=== PATIENT | male | born 1965 | race Caucasian/White ===

== ENCOUNTER 2018-07-19 07:19 | Inpatient (IN) | payer MEDICAID ==
[~2018-07-19] VITALS: Ht 170.2 cm; Wt 60.9 kg
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
--- NOTE | ~2018-07-19 | MORECARE ---
CASE MANAGEMENT DISCHARGE SUMMARY PATIENT: AMANDA MURO UNIT: [id number] ADM DATE: 07/19/18 AGE: 52 : 65 SEX: M ROOM/BED: D.1207 AUTHOR: [place] PHYSICIAN: REFERRING PHYSICIAN: ROMELIA RATLIFF MD DATE OF SERVICE: 07/24/18 Discharge Plan Patient Name: AMANDA MURO [facility] [facility] 1965 Planned Disposition: Home or Self Care Anticipated Discharge Date: Discharge Date: Expected LOS: Initial Reviewer: [email or web address] Initial Review Date: 07/24/2018 Generated: 07/24/18 6:31 pm DCPIA - Discharge Planning Initial Assessment Updated by [email or web address]: Marlene Montoya on 07/24/18 5:27 pm * Is the patient Alert and Oriented? Yes * How many steps to enter\exit or inside your home? unk * PCP no pcp * Pharmacy no pharmacy * Preadmission Environment Homeless * Other Environment [place] [address] * ADLs Independent * Equipment None * List name and contact numbers for known caregivers / representatives who currently or will assist patient after discharge: no contacts * Verbal permission to speak to the caregivers and representatives has been obtained from the patient. Yes * Community resources currently utilized None * Additional services required to return to the preadmission environment? No * Can the patient safely return to the preadmission environment? Yes * Has this patient been hospitalized within the prior 30 days at any hospital? No Patient Name: AMANDA MURO Page [id number] at 1731 All edits/amendments must be made on the electronic document DICTATION DATE: 07/24/181730 GIS SOFTWARE ENGINEER: LIMA 07/24/181730 RPT#: [id number] DC DATE: STATUS: ADM IN [facility] [address] [place] [address] END OF REPORT
[2018-07-19 08:22] LABS: BASOPHILS 0.3 % (0-2); HEMATOCRIT 41.4 % (42.0-54.0); HEMOGLOBIN 14.2 g/dL (13.5-17.5); IMMATURE GRANULOCYTES 0.3 % (0-5); MCH 32.2 pg (26.0-34.0); MCHC 34.3 g/dL (31.0-37.0); MCV 93.9 fL (80.0-100.0); MONOCYTES 6.8 % (2-11); NEUTROPHILS 78.6 % (40-80); PLATELET COUNT 283 10x3/uL (130-400); RBC 4.41 10x6/uL (4.20-6.10); RDW 13.3 % (11.5-14.5); WBC 11.9 10x3/uL (4.8-10.8)
[2018-07-19 08:40] LABS: ALBUMIN 2.9 g/dL (3.4-5.0); ALKALINE PHOSPHATASE 69 U/L (46-116); ALT (SGPT) 21 U/L (10-68); BILIRUBIN - TOTAL 0.29 mg/dL (0.2-1.3); CALC OSMOLALITY 277 mosm/kg (275-300); CALCIUM 9.1 mg/dL (8.5-10.1); CARBON DIOXIDE 31.4 mmol/L (21.0-32.0); CHLORIDE - SERUM 102 mmol/L (98-107); CREATININE - SERUM 0.6 mg/dL (0.6-1.3); GLUCOSE 97 mg/dL (74-106); POTASSIUM - SERUM 3.7 mmol/L (3.5-5.1); PROTEIN - SERUM 6.6 g/dL (6.4-8.2); SODIUM 140 mmol/L (136-145); UREA NITROGEN 9 mg/dL (7-18); eGFR NON AFRICAN AMERICAN > 90 mL/min (90-120)
[2018-07-19 19:00] VITALS: BP 123/79
[2018-07-19 20:00] VITALS: BP 130/81
[2018-07-19 22:00] VITALS: BP 118/79; BMI 21.2
[2018-07-20] VITALS (7 sets, daily range): BP systolic 115–144; BP diastolic 65–95; Ht 170.2 cm; Wt 60.9 kg
[2018-07-20 06:42] LABS: BASOPHILS 0.4 % (0-2); EOSINOPHILS 4.4 % (0-7); HEMATOCRIT 38.9 % (42.0-54.0); HEMOGLOBIN 13.1 g/dL (13.5-17.5); IMMATURE GRANULOCYTES 0.3 % (0-5); LYMPHOCYTES 24.2 % (15-50); MCH 31.9 pg (26.0-34.0); MCHC 33.7 g/dL (31.0-37.0); MCV 94.6 fL (80.0-100.0); MEAN PLATELET VOLUME 10.7 fL (7.4-10.4); MONOCYTES 7.5 % (2-11); NEUTROPHILS 63.2 % (40-80); PLATELET COUNT 292 10x3/uL (130-400); RBC 4.11 10x6/uL (4.20-6.10); RDW 13.5 % (11.5-14.5); WBC 10.4 10x3/uL (4.8-10.8)
[2018-07-20 07:06] LABS: CALC OSMOLALITY 275 mosm/kg (275-300); CALCIUM 8.1 mg/dL (8.5-10.1); CARBON DIOXIDE 25.9 mmol/L (21.0-32.0); CHLORIDE - SERUM 105 mmol/L (98-107); CREATININE - SERUM 0.6 mg/dL (0.6-1.3); GLUCOSE 80 mg/dL (74-106); SODIUM 140 mmol/L (136-145); UREA NITROGEN 7 mg/dL (7-18); eGFR NON AFRICAN AMERICAN > 90 mL/min (90-120)
[2018-07-21 04:00] VITALS: BP 151/94
[2018-07-21 08:18] VITALS: BP 128/88
[2018-07-21 08:29] LABS: BASOPHILS 0.4 % (0-2); EOSINOPHILS 4.5 % (0-7); HEMATOCRIT 42.4 % (42.0-54.0); HEMOGLOBIN 14.4 g/dL (13.5-17.5); IMMATURE GRANULOCYTES 0.4 % (0-5); LYMPHOCYTES 20.1 % (15-50); MCH 31.9 pg (26.0-34.0); MCV 93.8 fL (80.0-100.0); MONOCYTES 5.4 % (2-11); NEUTROPHILS 69.2 % (40-80); PLATELET COUNT 334 10x3/uL (130-400); RBC 4.52 10x6/uL (4.20-6.10); RDW 13.2 % (11.5-14.5); WBC 10.3 10x3/uL (4.8-10.8)
[2018-07-21 08:45] LABS: ALBUMIN 2.7 g/dL (3.4-5.0); ALKALINE PHOSPHATASE 66 U/L (46-116); BILIRUBIN - TOTAL 0.14 mg/dL (0.2-1.3); CALCIUM 8.8 mg/dL (8.5-10.1); CHLORIDE - SERUM 103 mmol/L (98-107); CREATININE - SERUM 0.6 mg/dL (0.6-1.3); POTASSIUM - SERUM 3.5 mmol/L (3.5-5.1); PROTEIN - SERUM 6.3 g/dL (6.4-8.2); SODIUM 139 mmol/L (136-145); eGFR NON AFRICAN AMERICAN > 90 mL/min (90-120)
[2018-07-21 08:46] LABS: ALT (SGPT) 15 U/L (10-68); CALC OSMOLALITY 280 mosm/kg (275-300); GLUCOSE 158 mg/dL (74-106); UREA NITROGEN 12 mg/dL (7-18)
[2018-07-21 12:01] VITALS: BP 136/91
[2018-07-21 15:40] VITALS: BP 146/102
[2018-07-21 16:54] LABS: VANCOMYCIN - TROUGH 6.1 ug/mL (10.0-20.0)
[2018-07-21 17:07] LABS: POTASSIUM - SERUM 5.2 mmol/L (3.5-5.1)
[2018-07-21 19:55] VITALS: BP 145/98
[2018-07-21 23:39] VITALS: BP 129/84
[2018-07-22 04:00] VITALS: BP 129/78
[2018-07-22 06:30] LABS: BASOPHILS 0.8 % (0-2); HEMOGLOBIN 14.3 g/dL (13.5-17.5); IMMATURE GRANULOCYTES 0.7 % (0-5); LYMPHOCYTES 30.1 % (15-50); MCH 31.8 pg (26.0-34.0); MCV 93.3 fL (80.0-100.0); MEAN PLATELET VOLUME 9.8 fL (7.4-10.4); MONOCYTES 7.6 % (2-11); NEUTROPHILS 55.8 % (40-80); PLATELET COUNT 308 10x3/uL (130-400); RDW 13.1 % (11.5-14.5); WBC 8.7 10x3/uL (4.8-10.8)
[2018-07-22 07:20] LABS: ALBUMIN 2.6 g/dL (3.4-5.0); ALKALINE PHOSPHATASE 59 U/L (46-116); ALT (SGPT) 12 U/L (10-68); BILIRUBIN - TOTAL 0.08 mg/dL (0.2-1.3); CALCIUM 7.9 mg/dL (8.5-10.1); CARBON DIOXIDE 27.4 mmol/L (21.0-32.0); CHLORIDE - SERUM 103 mmol/L (98-107); CREATININE - SERUM 0.6 mg/dL (0.6-1.3); PROTEIN - SERUM 6.2 g/dL (6.4-8.2); SODIUM 139 mmol/L (136-145); UREA NITROGEN 11 mg/dL (7-18); eGFR NON AFRICAN AMERICAN > 90 mL/min (90-120)
[2018-07-22 07:22] LABS: CALC OSMOLALITY 276 mosm/kg (275-300); GLUCOSE 91 mg/dL (74-106)
[2018-07-22 07:55] VITALS: BP 128/89
[2018-07-22 12:55] VITALS: BP 130/88
[2018-07-22 16:49] VITALS: BP 141/85
[2018-07-22 21:34] VITALS: BP 130/84
[2018-07-23 01:57] VITALS: BP 141/92
[2018-07-23 05:00] VITALS: BP 115/66
[2018-07-23 06:02] LABS: BASOPHILS 0.5 % (0-2); HEMATOCRIT 44.7 % (42.0-54.0); HEMOGLOBIN 15.1 g/dL (13.5-17.5); IMMATURE GRANULOCYTES 0.9 % (0-5); LYMPHOCYTES 20.6 % (15-50); MCH 32.1 pg (26.0-34.0); MCHC 33.8 g/dL (31.0-37.0); MCV 95.1 fL (80.0-100.0); MEAN PLATELET VOLUME 10.1 fL (7.4-10.4); MONOCYTES 6.8 % (2-11); NEUTROPHILS 67.2 % (40-80); PLATELET COUNT 289 10x3/uL (130-400); RDW 13.4 % (11.5-14.5); WBC 9.4 10x3/uL (4.8-10.8)
[2018-07-23 06:32] LABS: ALBUMIN 2.7 g/dL (3.4-5.0); ALKALINE PHOSPHATASE 61 U/L (46-116); ALT (SGPT) 15 U/L (10-68); BILIRUBIN - TOTAL 0.11 mg/dL (0.2-1.3); CALC OSMOLALITY 276 mosm/kg (275-300); CARBON DIOXIDE 28.2 mmol/L (21.0-32.0); CHLORIDE - SERUM 103 mmol/L (98-107); CREATININE - SERUM 0.7 mg/dL (0.6-1.3); GLUCOSE 86 mg/dL (74-106); POTASSIUM - SERUM 4.3 mmol/L (3.5-5.1); PROTEIN - SERUM 6.1 g/dL (6.4-8.2); SODIUM 139 mmol/L (136-145); UREA NITROGEN 13 mg/dL (7-18); eGFR NON AFRICAN AMERICAN > 90 mL/min (90-120)
[2018-07-23 08:34] VITALS: BP 119/91
[2018-07-23 12:05] VITALS: BP 123/82
[2018-07-23 19:00] VITALS: BP 126/85
[2018-07-24 01:58] VITALS: BP 125/80
[2018-07-24 02:25] VITALS: BP 125/80
[2018-07-24 05:09] VITALS: BP 129/82
[2018-07-24 06:52] LABS: HEMATOCRIT 45.7 % (42.0-54.0); HEMOGLOBIN 15.4 g/dL (13.5-17.5); IMMATURE GRANULOCYTES 1.6 % (0-5); LYMPHOCYTES 31.8 % (15-50); MCH 31.9 pg (26.0-34.0); MCHC 33.7 g/dL (31.0-37.0); MCV 94.6 fL (80.0-100.0); MEAN PLATELET VOLUME 10.1 fL (7.4-10.4); MONOCYTES 10.9 % (2-11); NEUTROPHILS 49.7 % (40-80); PLATELET COUNT 282 10x3/uL (130-400); RBC 4.83 10x6/uL (4.20-6.10); RDW 13.5 % (11.5-14.5); WBC 8.2 10x3/uL (4.8-10.8)
[2018-07-24 07:53] LABS: ALBUMIN 3.3 g/dL (3.4-5.0); ALKALINE PHOSPHATASE 67 U/L (46-116); CALCIUM 8.7 mg/dL (8.5-10.1); CARBON DIOXIDE 24.3 mmol/L (21.0-32.0); CHLORIDE - SERUM 101 mmol/L (98-107); CREATININE - SERUM 0.8 mg/dL (0.6-1.3); PROTEIN - SERUM 7.1 g/dL (6.4-8.2); SODIUM 139 mmol/L (136-145); UREA NITROGEN 16 mg/dL (7-18); eGFR NON AFRICAN AMERICAN > 90 mL/min (90-120)
[2018-07-24 07:56] LABS: ALT (SGPT) 21 U/L (10-68); CALC OSMOLALITY 276 mosm/kg (275-300); POTASSIUM - SERUM 5.1 mmol/L (3.5-5.1)
[2018-07-24 07:58] LABS: GLUCOSE 59 mg/dL (74-106)
[2018-07-24 10:11] VITALS: BP 117/61
[2018-07-24 12:09] VITALS: BP 115/89
[2018-07-24] MEDS ORDERED: AUGMENTIN 875-11 TAB PO (14:39)
[2018-07-24 16:07] VITALS: BP 120/68
== END 2018-07-24 16:19 | disposition home or self-care (01) | DRG 605 ==
LOC: D.ER 07:19 → D.M3 11:09 → D.EDHOLD 11:09 → D.M3 19:48
PROVIDERS: Family Medicine
PROC: 05HC33Z Insertion of Infusion Device into Left Basilic Vein, Percutaneous Approach (ICD-10-PCS; principal; 2018-07-19)
PROC: B54NZZA Ultrasonography of Left Upper Extremity Veins, Guidance (ICD-10-PCS; 2018-07-19)
DX: S60.571A Other superficial bite of hand of right hand, initial encounter (principal); L03.113 Cellulitis of right upper limb; F17.213 Nicotine dependence, cigarettes, with withdrawal; W54.0XXA Bitten by dog, initial encounter; D64.9 Anemia, unspecified; F90.9 Attention-deficit hyperactivity disorder, unspecified type; F41.9 Anxiety disorder, unspecified; E87.5 Hyperkalemia